=== PATIENT | female | born 1990 | race Caucasian/White ===

== ENCOUNTER 2018-11-09 08:00 | Inpatient (IN) | payer OTHER ==
[~2018-11-09] VITALS: Ht 170.2 cm; Wt 99.0 kg
[2018-11-09 09:06] VITALS: Ht 170.2 cm; Wt 99.0 kg
[2018-11-09] MEDS: LACTATED RINGER'S 1,000 ML IV SCH ×2 (09:25→16:18)
[2018-11-09] MEDS ORDERED: IBUPROFEN 600 MG TAB PO PRN (09:30)
[2018-11-09] MEDS ORDERED: METHYLERGONOVINE 0.2 MG INJ IM PRN (09:30)
[2018-11-09] MEDS ORDERED: BUTORPHANOL 2 MG INJ IV PRN (09:30)
[2018-11-09] MEDS ORDERED: CARBOPROST 250 MCG INJ IM PRN (09:30)
[2018-11-09] MEDS ORDERED: OXYTOCIN 30 UNITS/LR 500 ML IV PRN (09:30)
[2018-11-09] MEDS ORDERED: AMPICILLIN 2 GM/NS (PMX) 100 ML IV ONE (09:30)
[2018-11-09] MEDS ORDERED: OXYTOCIN 30 UNITS/LR 500 ML IV SCH ×2 (09:30)
[2018-11-09] MEDS ORDERED: LIDOCAINE 1% (MPF) 30 ML INJ INJ PRN (09:30)
[2018-11-09] MEDS ORDERED: MISOPROSTOL 200 MCG TAB PR PRN (09:30)
[2018-11-09] MEDS ORDERED: MISOPROSTOL 50 MCG CAPSULE PO ONE (10:30)
[2018-11-09] MEDS: AMPICILLIN 1 GM/NS (PMX) 50 ML IV SCH ×3 (13:47→22:48)
[2018-11-09] MEDS: MISOPROSTOL 50 MCG CAPSULE PO SCH ×2 (15:14→19:56)
[2018-11-10] MEDS: MISOPROSTOL 50 MCG CAPSULE PO SCH ×2 (00:14→05:10)
[2018-11-10] MEDS: LACTATED RINGER'S 1,000 ML IV SCH ×3 (02:22→08:50)
[2018-11-10] MEDS: AMPICILLIN 1 GM/NS (PMX) 50 ML IV SCH ×2 (02:50→06:48)
--- NOTE | 2018-11-10 08:14 | PREAC ---
Date/Time of Note Date/Time of Note DATE: 11/10/18 TIME: 08:13 Anesthesia Eval and Record Evaluation Time Pre-Procedure Interview DATE: 11/10/18 TIME: 08:13 Age 28 Sex female NPO: 8 hrs Preoperative diagnosis intrauterine Planned procedure labor epidural Past Medical History Past Medical History: Includes : : (2), Para: (1) Surgery & Anesthesia Issues No known issue Meds Anticoagulation: No Beta Daniel within 24 hr: No Reason Beta Daniel not given: Pt. not on B-Daniel Current Medications Lactated Ringer's 1,000 ml @ 125 mls/hr Q8H IV Last administered on 11/10/18at 07:56; Admin Dose 125 MLS/HR; Start 11/09/18 at 09:05 Ampicillin 50 ml @ 100 mls/hr Q4H IV Last administered on 11/10/18at 06:48; Admin Dose 100 MLS/HR; Start 11/09/18 at 13:30 Butorphanol Tartrate (Stadol) 2 mg Q2H PRN IV .PAIN SCALE 6-10 Last administered on 11/10/18at 07:06; Admin Dose 2 MG; Start 11/09/18 at 09:30 Lidocaine (Xylocaine 1% (Mpf)) 30 ml ONCE PRN INJ .EPISIOTOMY; Start 11/09/18 at 09:30 Oxytocin/Lactated Ringer's 500 ml @ 500 mls/hr ONCE POST IV ; Start 11/09/18 at 09:30 Oxytocin/Lactated Ringer's 500 ml @ 125 mls/hr POST IV ; Start 11/09/18 at 09:30 Ibuprofen (Motrin) 600 mg ONCE PRN PO .PAIN 1-5; Start 11/09/18 at 09:30 Oxytocin/Lactated Ringer's 500 ml @ 0 mls/hr ONCE PRN IV .VAGINAL BLEEDING; Start 11/09/18 at 09:30 Methylergonovine Maleate (Methergine) 0.2 mg ONCE PRN IM .VAGINAL BLEEDING; Start 11/09/18 at 09:30 Carboprost Tromethamine (Hemabate) 250 mcg ONCE PRN IM .VAGINAL BLEEDING; Start 11/09/18 at 09:30 Misoprostol (Cytotec) 1,000 mcg ONCE PRN GA .VAGINAL BLEEDING; Start 11/09/18 at 09:30 Misoprostol (Cytotec 50 Mcg Capsule) 50 mcg Q4 PO Last administered on 11/10/18 at 05:10; Admin Dose 50 MCG; Start 11/09/18 at 17:00 Meds reviewed: Yes Allergies Coded Allergies: No Known Allergy (Unverified , 11/09/18) Allergies Reviewed: Yes Labs/Studies Labs Reviewed: Reviewed by anesthesiologist Result Diagram: 11/09/1891911/09/1820 Laboratory Tests 11/09/18 09:20 Blood Bank Test 11/09/18 09:20 Antibody Screen NEGATIVE Blood Type O POSITIVE Rh Immune Globulin Candidate NO test: N/A Pre-procedure Exam Airway: Adequate mouth opening, Adequate thyromental dist Mallampati: Mallampati II Teeth: Normal Lung: Normal Heart: Normal ASA Physical Status ASA physical status: 2 Emergency: None Planned Anesthetic Neuraxial: Epidural Planned Pain Management Epidural Pre-operative Attestations Prior to commencing anesthesia and surgery, the patient was re-evaluated, there was verification of: *The patient's identity *The results of appropriate recent lab work and preoperative vital signs *The above evaluation not changing prior to induction *Anesthetic plan, risk benefits, alternative and complications discussed with patient/family; questions answered; patient/family understands, accepts and wishes to proceed. LUIS ALBERTO KEITA MD Nov 10, 2018 08:14
[2018-11-10] MEDS ORDERED: DIPHENHYDRAMINE 50 MG INJ IV PRN (08:30)
[2018-11-10] MEDS ORDERED: FENTAnyl 2MCG/ML-ROPIV 0.2% 100 ML BAG EPI SCH (08:30)
[2018-11-10] MEDS ORDERED: ONDANSETRON 4 MG INJ IV PRN ×2 (08:30→10:30)
[2018-11-10] MEDS ORDERED: NALOXONE (0.4 MG/ML) INJ IV PRN (08:30)
--- NOTE | 2018-11-10 09:20 | PAC ---
Date/Time of Note Date/Time of Note DATE: 11/10/18 TIME: 09:19 Post-Anesthesia Notes Post-Anesthesia Note Activity: WNL Respiratory function: WNL Cardiovascular function: WNL Mental status: Baseline Pain reasonably controlled: Yes Hydration appropriate: Yes Nausea/Vomiting absent: Yes Comments BP: 118/64 HR: 78 RR: 16 T: 98 Sao2: 100% LUIS ALBERTO KEITA MD Nov 10, 2018 09:20
[2018-11-10] MEDS ORDERED: TERBUTALINE 1 ML ONE (09:26)
[2018-11-10] MEDS ORDERED: TERBUTALINE 1 MG/ML INJ SC ONE (09:30)
--- NOTE | 2018-11-10 10:12 | HP ---
Date/Time of Note Date/Time of Note DATE: 11/10/18 TIME: 09:59 OB - History Hx of Present Free Text/Dictation 28 years old female 2 para 1 with an EDC of November 14, 2018 by early ultrasound this patient had care with me since early and she gained over 40 pounds during this and in the last few weeks she started swelling pretty deeply and having some headaches for which we decided to deliver her slightly early at 39 weeks by induction of labor. She was admitted on 11/09/18 for induction of labor Last Menstrual Period: Feb 11, 2018 Estimated Due Date: Nov 14, 2018 : 2 Para: 1 Care: Good Care Medical Complications: None, Other Other Concerns: Gestational edema Past Family/Social History * Past Medical, Surgical, Family and Obstetric Histories reviewed from chart. Blood Type: O+ Rubella: not immune RPR/VDRL: Negative GBS Status: Positive HBsAG: Negative OB Admission Exam Physical Exam HEENT: WNL Heart: Rhythm Normal Lungs: Clear, Equal Abdomen: WNL Extremities: Normal Reflexes: Normal Cervical Dilatation: 2cm Effacement: 50% Station: -2 Membranes: Intact Accelerations: Accelerations Present Decelerations: No Decelerations Contractions on Admission: >10 Minutes Apart Intensity: Mild Last 72 hours Lab Results CBC & BMP 11/09/18 09:20 Liver Function Test 11/09/18 09:20 Alanine Aminotransferase (ALT/SGPT) 20 Albumin 3.6 Alkaline Phosphatase 124 H Aspartate Amino Transf (AST/SGOT) 36 Direct Bilirubin 0.00 Total Protein 6.9 OB Assessment/Plan Reason for admission: induction of labor Other Assessment: Severe gestational edema. 39 weeks Plan: Induction Induction Method: per Misoprostol Protocol IMELDA MATOS MD Nov 10, 2018 10:10
[2018-11-10] MEDS ORDERED: OXYTOCIN 30 UNITS/LR 500 ML IV SCH (10:16)
--- NOTE | 2018-11-10 10:16 | LDN ---
Date/Time of Note Date/Time of Note DATE: 11/10/18 TIME: 10:12 Delivery Summary 39.3 weeks . Gestational edema Weeks of Gestation 39.3 Placenta Delivered: Spontaneously Meconium: none Episiotomy: No Perineal laceration: 1 Anesthesia type: Epidural Sponge & Needle done & correct: Yes All needle counts correct: Yes Any foreign bodies felt in the: No Infant Delivery Information Sex Infant Sex: female Apgars 1 Minute: 9 5 Minute: 9 Suctioning Nose & mouth suctioned at katelyn: Yes Umbilical Cord Umbilical cord with: 3 Vessels Cord presentations: nuchal cord Nuchal cord present X: 1 Cord Blood was obtained: Yes Mother & Baby Disposition Disposition Mom & Baby to Maternity; Good: Yes IMELDA MATOS MD Nov 10, 2018 10:16
[2018-11-10] MEDS ORDERED: DIBUCAINE 1% 30 GM OINT TOP PRN (10:30)
[2018-11-10] MEDS ORDERED: CARBOPROST 250 MCG INJ IM PRN (10:30)
[2018-11-10] MEDS ORDERED: WITCH HAZEL/GLYCERIN PAD PR PRN (10:30)
[2018-11-10] MEDS ORDERED: ACETAMINOPHEN 325 MG TAB PO PRN ×2 (10:30)
[2018-11-10] MEDS ORDERED: MISOPROSTOL 200 MCG TAB PR PRN (10:30)
[2018-11-10] MEDS ORDERED: HYDROCODONE/APAP (5/325) TAB PO PRN ×2 (10:30)
[2018-11-10] MEDS ORDERED: METHYLERGONOVINE 0.2 MG INJ IM PRN (10:30)
[2018-11-10] MEDS ORDERED: DIPHENHYDRAMINE 25 MG CAP PO PRN (10:30)
[2018-11-10] MEDS ORDERED: OXYTOCIN 30 UNITS/LR 500 ML IV PRN (10:30)
[2018-11-10 12:10] VITALS: BP 110/59; PULSE 80; RESP 18
[2018-11-10] MEDS: BENZOCAINE 20% 56 ML SPRAY TOP PRN (13:19)
[2018-11-10] MEDS: LANOLIN HPA 1 PKT TOP PRN (13:19)
[2018-11-10] MEDS: IBUPROFEN 800 MG TAB PO SCH ×3 (13:19→23:34)
[2018-11-10 17:00] VITALS: BP 115/55; PULSE 70; RESP 17
[2018-11-10 20:05] VITALS: BP 105/60; PULSE 76; RESP 17
[2018-11-10] MEDS: SENNA/DOCUSATE NA (8.6MG/50MG) TAB PO SCH (21:40)
[2018-11-11 00:10] VITALS: BP 110/66; PULSE 72; RESP 18
[2018-11-11 03:54] VITALS: BP 106/55; PULSE 68; RESP 17
[2018-11-11] MEDS: IBUPROFEN 800 MG TAB PO SCH ×3 (05:32→18:11)
[2018-11-11 07:45] VITALS: BP 103/51; PULSE 67; RESP 18
[2018-11-11] MEDS: SENNA/DOCUSATE NA (8.6MG/50MG) TAB PO SCH ×2 (09:31→21:00)
--- NOTE | 2018-11-11 10:50 | PN ---
Date/Time of Note Date/Time of Note DATE: 11/11/18 TIME: 10:48 OB Subjective Subjective Subjective Day 1 doing well. Breast-feeding Uterus contracted Lochia normal OB Objective HEENT: WNL Heart: Rhythm Normal Lungs: Clear, Equal Abdomen: WNL Extremities: Normal Reflexes: Normal IMELDA MATOS MD Nov 11, 2018 10:50
[2018-11-11 15:33] VITALS: BP 109/56; PULSE 70; RESP 20
[2018-11-11] MEDS: LANOLIN HPA 1 PKT TOP PRN (16:43)
[2018-11-11] MEDS: BENZOCAINE 20% 56 ML SPRAY TOP PRN (16:44)
[2018-11-11 20:45] VITALS: BP 112/68; PULSE 75; RESP 18
[2018-11-12] MEDS: IBUPROFEN 800 MG TAB PO SCH ×3 (00:12→12:02)
[2018-11-12 04:00] VITALS: BP 106/64; PULSE 69; RESP 17
[2018-11-12 08:00] VITALS: BP 113/64; PULSE 69; RESP 18
[2018-11-12] MEDS ORDERED: DIPHTH/TET/ACEL PERTUSS (ADULT) 0.5 ML VIAL IM* ONE (09:00)
[2018-11-12] MEDS ORDERED: MEASLES,MUMPS,RUBELLA VACCINE INJ SC* ONE (09:00)
[2018-11-12] MEDS ORDERED: VARICELLA VACCINE LIVE/PF 1,350 UNIT/0.5 ML ML SC* ONE (09:00)
[2018-11-12] MEDS: SENNA/DOCUSATE NA (8.6MG/50MG) TAB PO SCH (09:37)
--- NOTE | 2018-11-12 11:27 | PD.PPDC ---
SCARRER Discharge Instruction Condition [id number] Patient Condition: Nenmm0d Good Diet [id number] Diet: Hfuem5z Resume Regular Diet Activity/Restrictions Pperp4Tl Activity: [id number] Normal Activity May Shower [id number] Restrictions: Eleab7u No Exercising No Lifting No Driving No Sexual Activity Nothing in the Vagina No [place] No Tampons, douche Follow-up Follow-up with Physician: 6, Week/Weeks Return to clinic for [id number] COVER REMOVER Instructions: [id number] Fever greater than 101 Chills Worsening abdominal pain Excessive Vaginal Bleeding More than 2 pads per hour Unable to tolerate diet [id number] OB Instructions: [id number] Breast Tenderness Depression Blurried Vision Headache IMELDA MATOS MD Nov 12, 2018 11:26
--- NOTE | 2018-11-12 11:27 | DS ---
Date/Time of Note Date/Time of Note DATE: 11/12/18 TIME: 11:27 Obstetrical Discharge Record Final Diagnosis Final Diagnosis: Term delivered Vaginal Delivery Obstetrical Delivery: Spontaneous Complications Gestational Diabetes Induction: Yes Condition on Discharge Physical Assessment Voiding: Yes Bowel Movement: Yes Breast: Soft, non-tender, Filling Fundus: Firm Calf Tenderness: No Patient Condition: Good IMELDA MATOS MD Nov 12, 2018 11:27
[2018-11-12 16:00] VITALS: BP 128/58; PULSE 69; RESP 18
--- NOTE | 2018-11-13 19:00 | DELSUM ---
Delivery Summary A-C Datetime Report Generated by CPN: 11/13/2018 18:59 DELIVERY PERSONNEL Income Tax Advisor: Aníbal Davida MATERNAL INFORMATION Delivery Anesthesia: Epidural Medications in Delivery: Pitocin Delivery QBL (ml): 200 Placenta Cultured: No Maternal Complications: None Other Maternal Complications: R/O PIH LABOR SUMMARY EDC: 11/14/2018 00:00 No. Babies in Womb: 1 Attempted: No Labor Anesthesia: Epidural LABOR INFORMATION Reason for Induction: Gest. HTN/PreEclam/Eclamp Onset of Labor: 11/09/2018 10:00 Complete Dilatation: 11/10/2018 09:31 Cervical Ripening Agents: Cytotec @ 50 MCG Group B Beta Strep: Done, Result Unknown Antibiotics # of Doses: Ampicillin x6 Antibiotics Time of Last Dose: 11/10/2018 06:50 Steroids Given: None Reason Steroids Not Administered: Not Applicable MEMBRANES Membranes Rupture Method: Spontaneous Rupture of Membranes: 11/10/2018 06:52 Length of Rupture (hr): 2.73 Amniotic Fluid Color: Clear Amniotic Fluid Amount: Small Amniotic Fluid Odor: None STAGES OF LABOR Stage 1 hr: 23 Stage 1 min: 31 Stage 2 hr: 0 Stage 2 min: 5 Stage 3 hr: 0 Stage 3 min: 3 Total Time in Labor hr: 23 Total Time in Labor min: 39 VAGINAL DELIVERY Episiotomy: None Laceration Extension: First Degree Laceration Type: Perineal Laceration Repair: Yes Initial Vag Sponge Count: 10 Final Vag Sponge Count: 10 Initial Vag Sharps Count: 1 Final Vag Sharps Count: 2 Sponge Count Correct: Yes Sharps Count Correct: Yes BABY A INFORMATION Infant Delivery Date/Time: 11/10/2018 09:36 Method of Delivery: Vaginal Born in Route : No : N/A Forceps: N/A Vacuum Extraction: Successful Shoulder Dystocia : N/A SHOULDER DYSTOCIA BABY A Delivery Date/Time: 11/10/2018 09:36 PRESENTATION/POSITION BABY A Presentation: Cephalic Cephalic Presentation: Vertex Vertex Position: Left Occipital Posterior Breech Presentation: N/A PLACENTA INFORMATION BABY A Placenta Delivery Time : 11/10/2018 09:39 Placenta Method of Delivery: Spontaneous Placenta Status: Delivered SCORES BABY A Heart Rate 1 min: >100 bpm Resp Effort 1 min: Good Cry Reflex Irritability 1 min: Cough/Sneeze/Pulls Away Muscle Tone 1 min: Active Motion Color 1 min: Body [place], Extremit Blue Resuscitation Effort 1 min: Tactile Stimulation SCORE 1 MIN: 9 Heart Rate 5 min: >100 bpm Resp Effort 5 min: Good Cry Reflex Irritability 5 min: Cough/Sneeze/Pulls Away Muscle Tone 5 min: Active Motion Color 5 min: Body [place], Extremit Blue Resuscitation Effort 5 min: Tactile Stimulation SCORE 5 MIN: 9 INFORMATION BABY A Gestational Age at Delivery: 39.3 Gestational Status: Full Term- 39- 40.6 Weeks Infant Outcome : Liveborn, with signs of life Infant Condition : Stable Infant Sex: Male IDENTIFICATION/MEDS BABY A ID Band Number: [id number] ID Band Location: Right Leg; Left Arm Sensor Applied: Yes Sensor Number: [id number] Sensor Location : Cord Clamp Vitamin K Given : Not Given Erythromycin Given: Not Given WEIGHT/LENGTH BABY A Birthweight (gm): 3105 Weight (lb): 6 Infant Weight (oz): 14 Length (in): 20.00 Infant Length (cm): 50.80 CORD INFORMATION BABY A No. Cord Vessels: 3 Nuchal Cord : Around Neck x1, Tight Cord Blood Taken: Yes Suction: Mouth; Nose ASSESSMENT BABY A Complications: Multiple Variable Decels Physical Findings at Delivery: Within Normal Limits Respirations: Appears Normal Social Work Case Manager/ALS Called : No Infant Care By: Jany MERRILL/Juni RT Transferred To: Remains with Mother
== END 2018-11-12 18:59 | disposition home or self-care (01) | DRG 807 ==
LOC: L-D 08:54 → PP1 11-10 12:20
PROVIDERS: ADMIT Obstetrics & Gynecology; ATTEND Obstetrics & Gynecology
PROC: 3E0P7GC Introduction of Other Therapeutic Substance into Female Reproductive, Via Natural or Artificial Opening (ICD-10-PCS; 2018-11-09)
PROC: 10E0XZZ Delivery of Products of Conception, External Approach (ICD-10-PCS; principal; 2018-11-10)
PROC: 0HQ9XZZ Repair Perineum Skin, External Approach (ICD-10-PCS; 2018-11-10)
DX: O12.04 Gestational edema, complicating childbirth (principal); Z37.0 Single live birth; O70.0 First degree perineal laceration during delivery; O69.81X0 Labor and delivery complicated by cord around neck, without compression, not applicable or unspecified; O99.824 Streptococcus B carrier state complicating childbirth; O24.429 Gestational diabetes mellitus in childbirth, unspecified control; Z3A.39 39 weeks gestation of pregnancy
CPT/HCPCS: 62322; 76815; 80053; 81001; 84560; 85025; 85384; 85610; 85730; 86592; 86850; 86900; 86901; 87340; 90716; 99464; J0290; J0595; J2210; J2590; J3010; J3105; J7120